=== PATIENT | male | born 1970 | race Caucasian/White ===

== ENCOUNTER 2020-03-13 13:04 | Outpatient (REF) | payer OTHER, SELFPAY ==
[2020-03-13 14:02] LABS: Anion Gap 16 (12-20); Blood Urea Nitrogen 46 mg/dL (9-16); Calcium 8.9 mg/dL (8.4-10.2); Carbon Dioxide 28 mmol/L (22-29); Chloride 89 mmol/L (96-108); Estimated Glomerular Filt Rate 41; Glucose Random 480 mg/dL (60-115); Potassium 4.2 mmol/l (3.3-5.1); Sodium 129 mmol/L (135-145)
== END 2020-03-13 13:05 | disposition home or self-care (01) ==
LOC: HO.LNP 13:04
PROVIDERS: Visit Provider Physician Assistant Medical
DX: N18.9 Chronic kidney disease, unspecified (principal)
CPT/HCPCS: 80048

== ENCOUNTER 2020-03-22 15:16 | Outpatient (REF) | payer OTHER, SELFPAY | END 2020-03-22 15:17 | disposition home or self-care (01) | LOC: HO.LNP 15:16 | PROVIDERS: Visit Provider Internal Medicine | DX: Z13.89 Encounter for screening for other disorder (principal) | CPT/HCPCS: 80048 ==

== ENCOUNTER 2020-03-28 14:01 | Outpatient (REF) | payer OTHER, SELFPAY | END 2020-03-28 14:02 | disposition home or self-care (01) | LOC: HO.LNP 14:01 | PROVIDERS: Visit Provider Internal Medicine | DX: Z13.89 Encounter for screening for other disorder (principal) | CPT/HCPCS: 80048 ==

== ENCOUNTER 2020-04-05 14:58 | Outpatient (REF) | payer OTHER, SELFPAY ==
[2020-04-05 16:49] LABS: Anion Gap 19 (12-20); Blood Urea Nitrogen 39 mg/dL (9-16); Calcium 9.1 mg/dL (8.4-10.2); Carbon Dioxide 23 mmol/L (22-29); Chloride 89 mmol/L (96-108); Estimated Glomerular Filt Rate 44; Glucose Random 420 mg/dL (60-115); Potassium 4.2 mmol/l (3.3-5.1); Sodium 127 mmol/L (135-145)
== END 2020-04-05 14:59 | disposition home or self-care (01) ==
LOC: HO.LNP 14:58
PROVIDERS: Visit Provider Internal Medicine
DX: E11.9 Type 2 diabetes mellitus without complications (principal); I50.9 Heart failure, unspecified; Z79.4 Long term (current) use of insulin
CPT/HCPCS: 80048